=== PATIENT | male | born 1990 | race Two or more races ===

== ENCOUNTER 2021-12-29 14:55 | Emergency (ER) | payer SELFPAY ==
[~2021-12-29] VITALS: Ht 175.3 cm; Wt 90.7 kg
--- NOTE | 2021-12-29 15:15 | NUR ---
BIBS FOR C/O R RIB AREA/FLANK PAIN 10/ X 2 DAYS. DENIES ANY RECENT TRAUMA. NO APPARENT DEFORMITY NOTED. WILL CONTINUE TO MONITOR THE PATIENT.
[2021-12-29] MEDS ORDERED: KETOROLAC TROMETHAMINE INJ 60 MG/2 ML VIAL IM ONE (15:30)
[2021-12-29] MEDS ORDERED: KETOROLAC TROMETHAMINE INJ 30 MG/ML VIAL ONE (15:37)
[2021-12-29] MEDS ORDERED: CARI350T PO (16:27)
--- NOTE | 2021-12-29 16:48 | NUR ---
Patient discharged to home in stable condition. Written and verbal after care instructions given. Patient verbalizes understanding of instruction.
[2021-12-29 16:49] VITALS: BP 141/82
== END 2021-12-29 16:49 | disposition home or self-care (01) ==
LOC: ER 14:57
DX: R10.9 Unspecified abdominal pain (principal); I10 Essential (primary) hypertension; F17.200 Nicotine dependence, unspecified, uncomplicated
CPT/HCPCS: 71045; 74018; 96372; 99284; J1885